=== PATIENT | female | born 1985 | race Caucasian/White ===

== ENCOUNTER 2016-12-06 21:51 | Emergency (ER) | payer OTHER ==
--- NOTE | 2016-12-06 22:04 | PDOC ---
History of Present Illness - General Chief Complaint: Pain, Acute Stated Complaint: ABD PAIN, N/V Time Seen by Provider: 12/06/16 22:00 - History of Present Illness Initial Comments: This 31-year-old woman with history of intermittent vomiting/diarrhea, who has consulted several gastroenterologists over the last year presents with a few hour history of nausea/vomiting/diarrhea. Patient states that earlier today she was "queasy" but able to tolerate liquids. At approximately 6 PM, she began to have vomiting and multiple episodes of watery diarrhea. No blood in vomitus and no blood/mucus in diarrhea noted. No history of fever/chills. The patient has intermittent cramping abdominal pain. She states that these symptoms are identical to previous episodes of acute vomiting/diarrhea. She states that she was scheduled to see a new mileage clerk in August of this year; her mother became ill and she was not able to keep that appointment. Patient denies recent travel or unusual food ingestion. No history of pancreatitis noted. Past History - Past Medical History Allergies/Adverse Reactions: Allergies Allergy/AdvReac Type Severity Reaction Status Date / Time levofloxacin Allergy Rash Verified 06/10/16 02:41 orange Allergy Verified 12/06/16 22:08 Penicillins Allergy Verified 06/10/16 02:41 Home Medications: Ambulatory Orders Famotidine 20 mg PO DAILY 07/11/15 Hyoscyamine Odt [Levsin Odt -] 0.125 mg PO DAILY #30 tab.rapdis 06/10/16 GI Disorders: Yes (Achlasia-ESOPHAGEAL NARROWING) - Surgical History Cholecystectomy: Yes - Psycho/Social/Smoking Cessation Hx Anxiety: No Suicidal Ideation: No Smoking History: Never smoked Have you smoked in the past 12 months: No Hx Alcohol Use: No Drug/Substance Use Hx: No Substance Use Type: None Abd/GI Specific PMHX - Complaint Specific PMHX Pancreatitis: No Review of Systems - Review of Systems Able to Perform ROS?: Yes Comments:: 12 point review of systems is negative except for what is noted in the history of present illness *Physical Exam - Physical Exam Comments: GENERAL: Adult female, in mild distress secondary to intermittent abdominal pain /nausea HEAD: Normal with no signs of trauma. EYES: PERRLA, EOMI, sclera anicteric, conjunctiva clear. ENT: Ears normal, nares patent, oropharynx clear without exudates. Dry mucous membranes. NECK: Normal range of motion, supple without lymphadenopathy, JVD, or masses. LUNGS: Breath sounds equal, clear to auscultation bilaterally. No wheezes, and no crackles. HEART:Regular rate and rhythm, normal S1 and S2 without murmur, rub or gallop. ABDOMEN:.normal bowel sounds No guarding,tenderness or rebound.No masses No distention. EXTREMITIES: Normal range of motion, no edema. No clubbing or cyanosis. No erythema, or tenderness. NEUROLOGICAL: Cranial nerves II through XII grossly intact. Normal speech. No focal neurological deficits. MUSCULOSKELETAL: Back non-tender to palpation, no CVA tenderness SKIN: Warm, Dry, normal turgor, no rashes or lesions noted. ED Treatment Course - LABORATORY CBC & Chemistry Diagram: 12/06/16 22:13 12/06/16 22:13 Progress Note - Progress Note Progress Note: This 31-year-old woman with intermittent vomiting/diarrhea, presents with usual episode of these symptoms for the last few hours. No recent travel or unusual food ingestions. Exam notable for dry mucous membranes; abdominal exam is unremarkable without tenderness or masses palpated. Patient given a liter of normal saline IV. Laboratory evaluation suggests hemoconcentration with elevated white blood cell count/hemoglobin/hematocrit. Also, specific gravity of her urine is 1.025. Electrolytes are normal. BUN is 15 with a creatinine of 0.9, suggestive of moderate prerenal azotemia. Patient had complained that the cramping pain was most troublesome to her. She was given Toradol 30 mg I the. She subsequently had relief of the cramping or abdominal pain. Additional liter of normal saline was given. Patient complained of "bloated "feeling and persistent nausea. Patient given Reglan 10 mg IV. Patient felt relief from her nausea/bloating and wishes to go home. Patient will be discharged with instructions to rehydrate with clear liquids as tolerated and advance diet cautiously. She has Reglan and Zofran at home secondary to her previous episodes of vomiting/diarrhea. She will follow up with her mileage clerk in the near future and return to the emergency room if she has acute vomiting or persistent diarrhea *DC/Admit/Observation/Transfer Diagnosis at time of Disposition: Nausea vomiting and diarrhea - Discharge Dispostion Disposition: HOME Condition at time of disposition: Stable - Referrals Referrals: STAFF,NOT ON [Primary Care Provider] - - Patient Instructions Printed Discharge Instructions: Diarrhea Additional Instructions: Rehydrate with clear fluids as tolerated Advance diet cautiously Continue medications as prescribed Follow-up with your mileage clerk within the next 5 days Return to ER if you have recurrent vomiting, severe/persistent pain or develop bloody diarrhea
[2016-12-06 22:12] VITALS: TEMP 98.1; BMI 37.8
[2016-12-06 22:35] LABS: MCH 26.1 pg (25.7-33.7); MCHC 33.2 g/dl (32.0-36.0); MEAN CELL VOLUME 78.6 fl (80-96); MEAN PLT VOLUME 11.3 fl (7.5-11.1); PLATELET COUNT 276 K/MM3 (134-434); WHITE BLOOD COUNT 16.5 K/mm3 (4.0-10.8)
[2016-12-06 22:37] LABS: PH,URINE 5.5 (4.5-8); URINE APPEARANCE Clear; URINE BILIRUBIN 1+ (NEGATIVE); URINE BLOOD Negative (NEGATIVE); URINE GLUCOSE (UA) Negative (NEGATIVE); URINE KETONE Trace (NEGATIVE); URINE LEUK ESTERASE Negative (NEGATIVE); URINE NITRITE Negative (NEGATIVE); URINE UROBILINOGEN 0.2 (0.2-1.0)
[2016-12-06 22:38] LABS: URINE COLOR YELLOW; URINE PROTEIN 1+ (NEGATIVE)
[2016-12-06 22:47] LABS: URINE BACTERIA MODERATE /hpf (NEGATIVE); URINE RBC 0-2 /hpf (0-3)
[2016-12-06 23:05] LABS: ALBUMIN 4.9 g/dl (3.5-5.0); ALK PHOS 75 U/L (32-92); ANION GAP 9 (8-16); BILIRUBIN,TOTAL 0.9 mg/dl (0.2-1.0); CALCIUM 9.4 mg/dl (8.4-10.2); CO2 26 mmol/L (22-28); CREATININE 0.9 mg/dl (0.6-1.3); GLUCOSE,RANDOM 128 mg/dl (74-106); SGOT/AST 35 U/L (10-42); SGPT/ALT 63 U/L (10-40); TOT PROT 8.5 g/dl (6.4-8.3)
[2016-12-06 23:23] LABS: PLATELET ESTIMATE ADEQUATE (NORMAL)
[2016-12-06] MEDS ORDERED: SODIUM CHLORIDE 1,000 ML IV STA (23:33)
[2016-12-06] MEDS ORDERED: KETOROLAC TROMETHAMINE 30 MG/1 ML VIAL IVPUSH ONE (23:33)
[2016-12-06] MEDS ORDERED: KETOROLAC TROMETHAMINE 30 MG/1 ML VIAL ONE (23:37)
[2016-12-07] MEDS ORDERED: METOCLOPRAMIDE HCL INJECTION 10 MG/2 ML VIAL IVPB ONE (00:34)
[2016-12-07 01:14] VITALS: BP 117/52; PULSE 88
== END 2016-12-07 01:16 | disposition home or self-care (01) ==
LOC: FER 21:51
PROC: 3E0333Z Introduction of Anti-inflammatory into Peripheral Vein, Percutaneous Approach (ICD-10-PCS; principal; 2016-12-06)
PROC: 3E033GC Introduction of Other Therapeutic Substance into Peripheral Vein, Percutaneous Approach (ICD-10-PCS; 2016-12-06)
PROC: 3E0337Z Introduction of Electrolytic and Water Balance Substance into Peripheral Vein, Percutaneous Approach (ICD-10-PCS; 2016-12-06)
DX: R11.2 Nausea with vomiting, unspecified (principal); R19.7 Diarrhea, unspecified
CPT/HCPCS: 36415; 80053; 81003; 81015; 83690; 84703; 85025; 87086; 99283-25

== ENCOUNTER 2018-02-26 09:29 | Emergency (ER) | payer OTHER ==
--- NOTE | 2018-02-26 09:32 | PDOC ---
History of Present Illness - General Chief Complaint: Nausea/Vomiting Stated Complaint: NVD Time Seen by Provider: 02/26/18 09:31 History Source: Patient Exam Limitations: No Limitations - History of Present Illness Initial Comments: 02/26/18 10:01 32 yo F with a hx of achalasia (last esophageal dilation 2004), PCOS, and gastritis presents to the emergency department with nausea and vomiting (1x episode non-billious, non-bloody) with associative RUQ pain. She states it occurred at approximately 5:30 am and had the following associative symptoms: diarrhea (multiple episodes), lightheadedness, and headache. She states the pain is currently at a "discomfort" level and had not had another vomiting episode since the initial. Denies the following: recent sick contacts, fever, chills, ear pain, throat pain, rhinorrhea, visual changes, dysuria, hematuria, increased frequency, melena, and hematochezia. Pmhx: Refer to above Shx: cholecystectomy 2006 Meds: None currently. Admits to be prescribed pepcid and hyocyamine Allergies: Levofloxacin and penicillins Social: Denies tobacco, alcohol, and substance abuse. PMD: None currently. Past History - Past Medical History Allergies/Adverse Reactions: Allergies Allergy/AdvReac Type Severity Reaction Status Date / Time levofloxacin Allergy Rash Verified 02/26/18 09:33 orange Allergy Verified 02/26/18 09:33 Penicillins Allergy Verified 02/26/18 09:33 Home Medications: Ambulatory Orders Famotidine 20 mg PO DAILY 07/11/15 Hyoscyamine Odt [Levsin Odt -] 0.125 mg PO DAILY #30 tab.rapdis 06/10/16 Ondansetron [Zofran -] 4 mg PO TID PRN #21 tablet 02/26/18 GI Disorders: Yes (Achlasia-ESOPHAGEAL NARROWING) - Surgical History Cholecystectomy: Yes GI Surgery: Yes (DILATION OF ESOPHAGUS) - Suicide/Smoking/Psychosocial Hx Smoking History: Never smoked Have you smoked in the past 12 months: No Hx Alcohol Use: No Drug/Substance Use Hx: No Substance Use Type: None Review of Systems - Review of Systems Able to Perform ROS?: Yes Is the patient limited Faroese proficient: No Constitutional: Yes: Weakness. No: Chills, Diaphoresis, Fever HEENTM: No: Recent change in vision, Ear Pain, Nose Pain, Nose Congestion, Throat Pain, Throat Swelling Respiratory: No: Cough, Shortness of Breath, Hemoptysis Cardiac (ROS): No: Chest Pain, Irregular Heart Rate, Lightheadedness, Palpitations, Syncope ABD/GI: Yes: Diarrhea, Nausea, Poor Fluid Intake, Vomiting. No: Blood Streaked Bowels, Constipated, Rectal Bleeding, Tarry Stools : Yes: Flank Pain (right). No: Burning, Dysuria, Frequency, Hematuria, Urgency Musculoskeletal: No: Back Pain Integumentary: No: Bruising, Lesions, Rash Neurological: Yes: Headache, Weakness. No: Numbness, Tingling, Unsteady Gait, Ataxia, Dizziness Psychiatric: No: Stressors Endocrine: No: Unexplained Weight Gain Hematologic/Lymphatic: No: Anemia *Physical Exam - Physical Exam General Appearance: Yes: Nourished, Appropriately Dressed. No: Apparent Distress HEENT: positive: EOMI, LORE, Normal Voice, Symmetrical. negative: Scleral Icterus (R), Scleral Icterus (L), Muffled/Hoarse voice, Nasal Congestion, Rhinorrhea, Excessive drooling Neck: positive: Trachea midline. negative: Tender, Lymphadenopathy (R), Lymphadenopathy (L), Tender lateral, Tender midline Respiratory/Chest: positive: Lungs Clear, Normal Breath Sounds. negative: Chest Tender, Respiratory Distress, Accessory Muscle Use, Crackles, Rales, Rhonchi, Stridor, Wheezing, Hyperresonant Cardiovascular: positive: Regular Rhythm, S1, S2, Tachycardia. negative: Systolic Murmur Gastrointestinal/Abdominal: positive: Normal Bowel Sounds, Tender (suprapubic, epigastric, and RUQ region), Flat, Soft. negative: Protuberent, Distended, Guarding, Rebound, Hernia Lymphatic: negative: Adenopathy Musculoskeletal: positive: Normal Inspection, CVA Tenderness (R). negative: CVA Tenderness (L) Extremity: positive: Normal Capillary Refill, Normal Inspection, Normal Range of Motion, Tender Integumentary: positive: Normal Color, Dry, Warm Neurologic: positive: regulatory administrator II-XII NML intact, Fully Oriented, Alert, Normal Mood/ Affect, Normal Response, Motor Strength 5/5. negative: Confused ED Treatment Course - LABORATORY CBC & Chemistry Diagram: 02/26/18 10:12 02/26/18 10:12 Medical Decision Making - Medical Decision Making 02/26/18 10:31 32 yo F with a hx of achalasia (last esophageal dilation 2004), PCOS, and gastritis presents to the emergency department with nausea and vomiting (1x episode non-billious, non-bloody) with associative RUQ pain Initial vitals: Initial Vital Signs Temp Pulse Resp BP Pulse Ox 98.2 F 106 H 20 116/86 99 02/26/18 09:29 02/26/18 09:29 02/26/18 09:29 02/26/18 09:29 02/26/18 09:29 Work up: ddx: patient presents with n/v with associative RUQ pain with positive CVA and suprapubic tenderness. patient has efraín 10+ years ago, unlikely to be choledocholithiasis. r/o pancreatitis, UTI, (Ectopic). Unlikely to be SBO given she has been having diarrhea. Likely this is viral gastroenteritis vs IBS exacerbation (hx of gastritis). will order cbc to rule out infection, cmp to assess metabolic status, UA for infection rate, urine to determine status. will treat with IVF, zofran and pepcid initially. Laboratory Tests 02/26/18 02/26/18 02/26/18 09:58 10:12 10:12 WBC 19.5 H RBC 5.72 H Hgb 13.6 Hct 42.2 MCV 73.7 L MCH 23.8 L MCHC 32.4 RDW 15.1 Plt Count 347 MPV 11.6 H Absolute Neuts (auto) 17.1 Neutrophils % No Result Required. Neutrophils % (Manual) 87.0 H Lymphocytes % No Result Required. Lymphocytes % (Manual) 9.0 Monocytes % (Manual) 6 Platelet Estimate Adequate Sodium 136 Potassium 4.4 Chloride 104 Carbon Dioxide 25 Anion Gap 7 L BUN 14 Creatinine 0.7 Creat Clearance w eGFR > 60 Random Glucose 117 H Calcium 9.6 Total Bilirubin 0.4 AST 28 ALT 44 H D Alkaline Phosphatase 73 Total Protein 8.1 Albumin 4.4 Lipase 137 Urine Color Urine Appearance Urine pH Ur Specific Phyllis Urine Protein Urine Glucose (UA) Urine Ketones Urine Blood Urine Nitrite Urine Bilirubin Urine Urobilinogen Ur Leukocyte Esterase Urine HCG, Qual 02/26/18 02/26/18 11:32 11:32 WBC RBC Hgb Hct MCV MCH MCHC RDW Plt Count MPV Absolute Neuts (auto) Neutrophils % Neutrophils % (Manual) Lymphocytes % Lymphocytes % (Manual) Monocytes % (Manual) Platelet Estimate Sodium Potassium Chloride Carbon Dioxide Anion Gap BUN Creatinine Creat Clearance w eGFR Random Glucose Calcium Total Bilirubin AST ALT Alkaline Phosphatase Total Protein Albumin Lipase Urine Color Bisi Urine Appearance Clear Urine pH 6.0 Ur Specific Phyllis 1.020 Urine Protein Negative Urine Glucose (UA) Negative Urine Ketones Negative Urine Blood Negative Urine Nitrite Negative Urine Bilirubin Negative Urine Urobilinogen 0.2 Ur Leukocyte Esterase Negative Urine HCG, Qual Negative cbc shows wbc of 19.5 and elevated alt at 44. patient was reassessed after fluids (given 2 L of NS 0.9% total) and zofran + pepcid. She states her nausea ceased and she has pain improvement (initial was 5/10 in dept, now 2/10) but has persistent pain that increases with movement. will order CT abd/pelv with IV contrast due to increased pain in setting of WBC elevation. 02/26/18 11:57 *DC/Admit/Observation/Transfer Diagnosis at time of Disposition: Nausea & vomiting Qualifiers: Vomiting type: unspecified Vomiting Intractability: intractable Qualified Code( s): R11.2 - Nausea with vomiting, unspecified Abdominal pain Qualifiers: Abdominal location: right upper quadrant Qualified Code(s): R10.11 - Right upper quadrant pain - Discharge Dispostion Disposition: HOME Decision to Admit order: No - Prescriptions Prescriptions: Ondansetron [Zofran -] 4 mg PO TID PRN #21 tablet PRN Reason: Nausea - Referrals Referrals: [facility] [Provider Group] - Patient Instructions Printed Discharge Instructions: DI for Nausea -- Adult, DI for Vomiting -- Adult Additional Instructions: You were seen in the emergency department for your nausea and vomiting with associative abdominal pain. The lab results were within normal limits except for your white blood cell count which was 19.5 which is considered elevated. This can be due to a viral infection. Your CT abdomen and pelvis showed no acute pathologies. Please continue to stay on a liquid diet for today and transition to solids starting tomorrow slowly and as tolerated. Please continue to use ibuprofen and tylenol as needed for pain as directed on the label. Please follow up with your primary medical doctor (or the one we referred you to in the packet) within 72 hours after discharge for follow up care and management. Please return to the emergency department if you have worsening of symptoms or develop new concerning symptoms such as fever/chills, continuous vomiting, blood in the stool, vomit, or urine, and worsening abdominal pain. Thank you. - Post Discharge Activity
[2018-02-26 09:43] VITALS: BMI 36.8
[2018-02-26] MEDS ORDERED: FAMOTIDINE 20 MG/50 ML IVPB 20 MG/50 ML MG IVPB ONE ×2 (09:48→10:10)
[2018-02-26] MEDS ORDERED: HYOSCYAMINE SULFATE 0.125 MG TABLET PO ONE (09:48)
[2018-02-26] MEDS ORDERED: MAG HYDROX/AL HYDROX/SIMETH 30 ML UNIT-DOSE CUP PO ONE (09:48)
[2018-02-26] MEDS ORDERED: SODIUM CHLORIDE 1,000 ML IV STA ×2 (09:48→10:53)
[2018-02-26] MEDS ORDERED: ONDANSETRON 4 MG/2 ML VIAL IVPUSH ONE (09:50)
--- NOTE | 2018-02-26 09:51 | PDOC ---
Attending Attestation - Resident Resident Name: BrandieUgo - ED Attending Attestation I have performed the following: I have examined & evaluated the patient, The case was reviewed & discussed with the resident, I agree w/resident's findings & plan, Exceptions are as noted - HPI HPI: 02/26/18 09:51 32, hx of gastritis, acalasia, s/p dilitaion, s/p cholecystectomy presents to the emergency department with one-day history of nausea vomiting diarrhea and epigastric abdominal discomfort. One episode of emesis nonbloody nonbilious persistent nausea retching and several episodes of loose watery diarrhea. No travel no sick contacts. Similar symptoms in the past last episode was 3 months ago Currently symptoms are persistent concent moderate to severe in severity with no exacerbating or alleviating factors. - Physicial Exam PE: Vitals: Triage Vital signs reviewed General Appearance: no acute distress, well nourished well developed, Head: Atraumatic, Neck: Supple;No Nucal rigidity Chest Wall: Nontender Cardiac: Regular rate and rhythym, no murmurs, no rubs, no gallops, Lungs: Clear to auscultation bilateral, good air movement bilaterally, Abdomen: Soft, non distended, normal bowel sounds, Epigastric ttp Extremities: Full range of motion to all extremities, no cyanosis, clubbing, or edema Skin: Warm and dry, no rashes or lesions, no rash, no petechiae Psych: normal mood, normal affect - Medical Decision Making 02/26/18 14:36 32 years old nausea vomiting diarrhea we'll treat with GI cocktail observe serial abdominal exams and reassess Patient feels less nauseous after GI cocktail still with some abdominal pain. Laboratory analysis notable for white count of 19 Given persistent pain and elevated white blood cell count we'll obtain CT abdomen pelvis to rule out surgical pathology Reevaluation: CT abdomen pelvis with no acute findings at this time patient's pain is improving history examination consistent with viral GI illness given nausea vomiting and diarrhea We'll discharge home with course of Zofran and close PCP follow-up Findings, the need for follow-up and very strict abdominal pain return instructions discussed with patient.
[2018-02-26] MEDS ORDERED: ONDANSETRON 4 MG/2 ML VIAL ONE (10:10)
[2018-02-26 10:49] LABS: HEMATOCRIT 42.2 % (32.4-45.2); HEMOGLOBIN 13.6 GM/dl (10.7-15.3); MCH 23.8 pg (25.7-33.7); MCHC 32.4 g/dl (32.0-36.0); MEAN CELL VOLUME 73.7 fl (80-96); MEAN PLT VOLUME 11.6 fl (7.5-11.1); PLATELET COUNT 347 K/MM3 (134-434); RBC 5.72 M/mm3 (3.60-5.2); RDW 15.1 % (11.6-15.6); WHITE BLOOD COUNT 19.5 K/mm3 (4.0-10.8)
[2018-02-26 10:56] LABS: ALBUMIN 4.4 g/dl (3.5-5.0); ALK PHOS 73 U/L (32-92); ANION GAP 7 MMOL/L (8-16); BILIRUBIN,TOTAL 0.4 mg/dl (0.2-1.0); BLOOD UREA NITROGEN 14 mg/dl (7-18); CALCIUM 9.6 mg/dl (8.4-10.2); CHLORIDE 104 mmol/L (98-107); CO2 25 mmol/L (22-28); CREATININE 0.7 mg/dl (0.6-1.3); GLUCOSE,RANDOM 117 mg/dl (74-106); POTASSIUM 4.4 mmol/L (3.5-5.1); SGOT/AST 28 U/L (10-42); SGPT/ALT 44 U/L (10-40); SODIUM 136 mmol/L (136-145); TOT PROT 8.1 g/dl (6.4-8.3)
[2018-02-26 11:21] LABS: PLATELET ESTIMATE ADEQUATE
[2018-02-26 11:40] LABS: URINE APPEARANCE Clear; URINE BILIRUBIN Negative (NEGATIVE); URINE COLOR Amber; URINE GLUCOSE (UA) Negative (NEGATIVE); URINE KETONE Negative (NEGATIVE); URINE LEUK ESTERASE Negative (NEGATIVE); URINE NITRITE Negative (NEGATIVE); URINE PROTEIN Negative (NEGATIVE); URINE UROBILINOGEN 0.2 (0.2-1.0)
[2018-02-26 13:22] VITALS: BP 114/69; PULSE 81; TEMP 98.3
== END 2018-02-26 14:40 | disposition home or self-care (01) ==
LOC: FER 09:29
PROC: 3E033GC Introduction of Other Therapeutic Substance into Peripheral Vein, Percutaneous Approach (ICD-10-PCS; principal; 2018-02-26)
PROC: 3E0337Z Introduction of Electrolytic and Water Balance Substance into Peripheral Vein, Percutaneous Approach (ICD-10-PCS; 2018-02-26)
DX: R11.2 Nausea with vomiting, unspecified (principal); R10.11 Right upper quadrant pain
CPT/HCPCS: 36415; 74177-TC; 80053; 81003; 83690; 84703; 85025; 87086; 99283-25; J7030

== ENCOUNTER 2018-08-19 06:17 | Emergency (ER) | payer OTHER ==
[2018-08-19 06:26] VITALS: BMI 36.8
--- NOTE | 2018-08-19 06:27 | PDOC ---
History of Present Illness - General Chief Complaint: Nausea/Vomiting Stated Complaint: VOMITING SINCE 4AM Time Seen by Provider: 08/19/18 06:27 History Source: Patient Exam Limitations: No Limitations Past History - Past Medical History Allergies/Adverse Reactions: Allergies Allergy/AdvReac Type Severity Reaction Status Date / Time levofloxacin Allergy Rash Verified 08/19/18 06:18 orange Allergy Verified 08/19/18 06:18 Penicillins Allergy Verified 08/19/18 06:18 Home Medications: Ambulatory Orders Famotidine 20 mg PO DAILY 07/11/15 COPD: No GI Disorders: Yes (Achlasia-ESOPHAGEAL NARROWING) - Surgical History Cholecystectomy: Yes GI Surgery: Yes (DILATION OF ESOPHAGUS) - Suicide/Smoking/Psychosocial Hx Smoking History: Never smoked Have you smoked in the past 12 months: No Information on smoking cessation initiated: No Hx Alcohol Use: No Drug/Substance Use Hx: No Substance Use Type: None Abd/GI Specific PMHX - Complaint Specific PMHX Pancreatitis: No *Physical Exam - Vital Signs Last Vital Signs Temp Pulse Resp BP Pulse Ox 97.5 F L 104 H 16 124/87 100 08/19/18 06:20 08/19/18 06:20 08/19/18 06:20 08/19/18 06:20 08/19/18 06:20 *DC/Admit/Observation/Transfer - Discharge Dispostion Condition at time of disposition: Stable - Referrals - Patient Instructions - Post Discharge Activity
[2018-08-19] MEDS ORDERED: SODIUM CHLORIDE 1,000 ML IV ONE (06:43)
[2018-08-19] MEDS ORDERED: ONDANSETRON 4 MG/2 ML VIAL IVPB ONE (06:44)
[2018-08-19] MEDS ORDERED: ONDANSETRON 4 MG/2 ML VIAL ONE (06:46)
--- NOTE | 2018-08-19 07:48 | PDOC ---
*Physical Exam - Vital Signs Last Vital Signs Temp Pulse Resp BP Pulse Ox 97.5 F L 104 H 16 124/87 100 08/19/18 06:20 08/19/18 06:20 08/19/18 06:20 08/19/18 06:20 08/19/18 06:20 ED Treatment Course - LABORATORY CBC & Chemistry Diagram: 08/19/18 07:01 08/19/18 07:01 - Medications Given in the ED: ED Medications Discontinued Medications Generic Name Dose Route Start Last Admin Trade Name Freq PRN Reason Stop Dose Admin Ondansetron HCl 8 mg 08/19/18 06:44 08/19/18 06:54 Zofran Injection IVPB 08/19/18 06:45 8 mg ONCE ONE Administration *DC/Admit/Observation/Transfer Diagnosis at time of Disposition: Nausea vomiting and diarrhea - Discharge Dispostion Disposition: HOME Condition at time of disposition: Improved Decision to Admit order: No - Prescriptions Prescriptions: Ondansetron [Zofran Odt -] 4 mg SL TID PRN #20 od.tablet PRN Reason: Nausea And/Or Vomiting - Referrals Referrals: J Carlos Madera MD [Staff Physician] - - Patient Instructions Printed Discharge Instructions: DI for Nausea -- Adult, DI for Vomiting -- Adult Additional Instructions: Blood tests showed that a certain chemical produced by the pancreas was elevated. However, CT scan revealed no pancreas abnormality. However, it is necessary to see a bakeshop cleaner to further investigate the reason for an elevated pancreatic enzyme, which is called lipase. There may be early inflammation of the pancreas that is as yet undetectable on CT scan. Your white blood count is elevated, suggesting that you have a stomach virus that is responsible for your symptoms. This should resolve on its own in a day or 2. Stay on clear liquids advancing as tolerated when pain and nausea/vomiting /diarrhea resolve Take Zofran as prescribed for nausea, Imodium [id number] for diarrhea if there are frequent stools or large amounts of liquid stool that persists. See her family doctor and follow up with bakeshop cleaner as directed. Return to ER if symptoms worsen or additional symptoms develop - Post Discharge Activity
[2018-08-19 07:54] LABS: BASO % 0.2 % (0-2.0); EOS % 0.7 % (0-4.5); HEMATOCRIT 43.4 % (32.4-45.2); HEMOGLOBIN 13.7 GM/dl (10.7-15.3); LYMPH % 6.6 % (8-40); MCH 23.5 pg (25.7-33.7); MCHC 31.6 g/dl (32.0-36.0); MEAN CELL VOLUME 74.2 fl (80-96); MEAN PLT VOLUME 11.1 fl (7.5-11.1); MONO % 5.6 % (3.8-10.2); NEUT % 86.9 % (42.8-82.8); PLATELET COUNT 365 K/MM3 (134-434); RBC 5.85 M/mm3 (3.60-5.2); RDW 14.8 % (11.6-15.6); WHITE BLOOD COUNT 19.5 K/mm3 (4.0-10.8)
[2018-08-19 08:02] LABS: ALBUMIN 4.8 g/dl (3.4-5.0); BILIRUBIN,TOTAL 0.3 mg/dl (0.2-1); CALCIUM 9.8 mg/dl (8.5-10); CREATININE 0.9 mg/dl (0.55-1.3); POTASSIUM 3.9 mmol/L (3.5-5.1); TOT PROT 8.5 g/dl (6.4-8.2)
[2018-08-19 10:27] VITALS: BP 106/71; PULSE 83; TEMP 98.5
[2018-08-19 14:02] LABS: ADD RBC MORPHOLOGY YES
[2018-08-19 14:08] LABS: ANISOCYTOSIS 1+; OVALOCYTE 1+; TEAR DROP CELLS FEW
--- NOTE | 2018-08-19 14:26 | PDOC ---
History of Present Illness - General Chief Complaint: Nausea/Vomiting Stated Complaint: VOMITING SINCE 4AM Time Seen by Provider: 08/19/18 06:27 - History of Present Illness Initial Comments: 08/19/18 14:21 Chief complaint: Nausea vomiting and diarrhea History of present illness: Nausea vomiting and diarrhea suggested evening. No hematemesis melena or bloody stool. Mild intermittent crampy epigastric pain. Similar symptoms frequently in the past, last several months ago, persist for 1- 2 days and resolved spontaneously. Uses Zofran 4 symptomatic treatment no other GI disease is diagnosed. Review of systems: As noted above. Remainder of review negative Social/family history: No tobacco alcohol or nonprescription drugs. No disability. No family history of GI disease Physical exam: Alert and oriented well-developed well-nourished no acute distress cheerful and cooperative Afebrile, vital signs normal No pallor or icterus. HEENT clear. Neck supple without bruit mass or nodes Chest clear CV regular without murmur rub or gallop Abdomen nondistended. Bowel sounds normal. Soft without mass or organomegaly. There is mild tenderness to deep palpation in the epigastrium without guarding or rebound. No CVAT Extremities no CCE Skin clear, no rash, adequate turgor and wet mucous membranes Neurological intact Impression: Gastrointestinal illness, possible viral gastroenteritis Plan: CBC chemistries and lipase. Symptomatic treatment with fluids and Zofran. Observation and further evaluation depending on results Past History - Past Medical History Allergies/Adverse Reactions: Allergies Allergy/AdvReac Type Severity Reaction Status Date / Time levofloxacin Allergy Rash Verified 08/19/18 06:18 orange Allergy Verified 08/19/18 06:18 Penicillins Allergy Verified 08/19/18 06:18 Home Medications: Ambulatory Orders Famotidine 20 mg PO DAILY 07/11/15 Ondansetron [Zofran Odt -] 4 mg SL TID PRN #20 od.tablet 08/19/18 COPD: No GI Disorders: Yes (Achlasia-ESOPHAGEAL NARROWING) - Surgical History Cholecystectomy: Yes GI Surgery: Yes (DILATION OF ESOPHAGUS) - Suicide/Smoking/Psychosocial Hx Smoking History: Never smoked Have you smoked in the past 12 months: No Information on smoking cessation initiated: Yes Hx Alcohol Use: No Drug/Substance Use Hx: No Substance Use Type: None Abd/GI Specific PMHX - Complaint Specific PMHX Pancreatitis: No *Physical Exam - Vital Signs Last Vital Signs Temp Pulse Resp BP Pulse Ox 98.5 F 83 16 106/71 99 08/19/18 10:24 08/19/18 10:24 08/19/18 10:24 08/19/18 10:24 08/19/18 10:24 ED Treatment Course - LABORATORY CBC & Chemistry Diagram: 08/19/18 07:01 08/19/18 07:01 - ADDITIONAL ORDERS Additional order review: Laboratory Results 08/19/18 08/19/18 10:24 07:01 Sodium 136 Potassium 3.9 Chloride 100 Carbon Dioxide 23 Anion Gap 13 BUN 12 Creatinine 0.9 Est GFR (CKD-EPI)AfAm 97.37 Est GFR (CKD-EPI)NonAf 84.01 Random Glucose 145 H Calcium 9.8 Total Bilirubin 0.3 AST 33 ALT 48 Alkaline Phosphatase 83 Total Protein 8.5 H Albumin 4.8 Lipase 558 H Urine HCG, Qual Negative 08/19/18 07:01 RBC 5.85 H MCV 74.2 L MCHC 31.6 L RDW 14.8 MPV 11.1 Neutrophils % 86.9 H Lymphocytes % 6.6 L Monocytes % 5.6 Eosinophils % 0.7 Basophils % 0.2 - RADIOLOGY Radiology Studies Ordered: Category Date Time Status ABDOMEN CT WITH CONTRAST* [CT] Stat CT Scan 08/19/18 11:23 Completed - Medications Given in the ED: ED Medications Discontinued Medications Generic Name Dose Route Start Last Admin Trade Name Freq PRN Reason Stop Dose Admin Sodium Chloride 1,000 mls @ 1,000 mls/hr 08/19/18 06:43 08/19/18 06:53 Normal Saline - IV 08/19/18 07:42 1,000 mls/hr .Q1H ONE Administration Ondansetron HCl 8 mg 08/19/18 06:44 08/19/18 06:54 Zofran Injection IVPB 08/19/18 06:45 8 mg ONCE ONE Administration Medical Decision Making - Medical Decision Making 08/19/18 14:26 WBC 19,000, lipase 558. WBCs were elevated to this level on last admission, however, lipase has been normal Possibly viral gastroenteritis, but rule out hepatic or pancreatic disease CT of the abdomen with contrast is negative. Elevated amylase and normal CT were discussed with the patient. The possibility of pancreatic disease is still possible and she was strongly encouraged to follow up with dewer for further evaluation and treatment. In the meantime treatment for gastroenteritis with antiemetics, Imodium, and fluids, with return to ER if symptoms worsen or other symptoms develop. Patient feels much better, no further nausea or vomiting after treatment, no distress at discharge with to follow-up as directed. *DC/Admit/Observation/Transfer Diagnosis at time of Disposition: Nausea vomiting and diarrhea - Discharge Dispostion Disposition: HOME Condition at time of disposition: Improved - Prescriptions Prescriptions: Ondansetron [Zofran Odt -] 4 mg SL TID PRN #20 od.tablet PRN Reason: Nausea And/Or Vomiting - Referrals Referrals: J Carlos Madera MD [Staff Physician] - - Patient Instructions Printed Discharge Instructions: DI for Nausea -- Adult, DI for Vomiting -- Adult Additional Instructions: Blood tests showed that a certain chemical produced by the pancreas was elevated. However, CT scan revealed no pancreas abnormality. However, it is necessary to see a dewer to further investigate the reason for an elevated pancreatic enzyme, which is called lipase. There may be early inflammation of the pancreas that is as yet undetectable on CT scan. Your white blood count is elevated, suggesting that you have a stomach virus that is responsible for your symptoms. This should resolve on its own in a day or 2. Stay on clear liquids advancing as tolerated when pain and nausea/vomiting /diarrhea resolve Take Zofran as prescribed for nausea, Imodium [id number] for diarrhea if there are frequent stools or large amounts of liquid stool that persists. See her family doctor and follow up with dewer as directed. Return to ER if symptoms worsen or additional symptoms develop - Post Discharge Activity Forms/Work/School Notes: Back to Work
== END 2018-08-19 13:29 | disposition home or self-care (01) ==
LOC: FER 06:17
PROC: 3E033GC Introduction of Other Therapeutic Substance into Peripheral Vein, Percutaneous Approach (ICD-10-PCS; principal; 2018-08-19)
PROC: 3E0337Z Introduction of Electrolytic and Water Balance Substance into Peripheral Vein, Percutaneous Approach (ICD-10-PCS; 2018-08-19)
DX: R11.2 Nausea with vomiting, unspecified (principal); R19.7 Diarrhea, unspecified
CPT/HCPCS: 36415; 74160-TC; 80053; 83690; 84703; 85025; 99282-25; J7030

== ENCOUNTER 2024-08-17 14:03 | Emergency (ER) | payer BC ==
[2024-08-17] MEDS ORDERED: ONDANSETRON 4 MG/2 ML VIAL IVPB ONE (14:07)
[2024-08-17] MEDS ORDERED: SODIUM CHLORIDE 0.9% 500 ML INFUS.BAG IV ONE (14:07)
[2024-08-17 14:33] VITALS: BP 133/82; PULSE 82; RESP 20; TEMP 98.4; BMI 37.8
[2024-08-17] MEDS ORDERED: ACETAMINOPHEN INJECTION 100 ML ONE (14:49)
[2024-08-17] MEDS: ACETAMINOPHEN 1000 MG/100 ML BAG IVPB ONE (15:00)
[2024-08-17] MEDS: DEXTROSE 5%-NORMAL SALINE 1,000 ML IV ONE (15:00)
[2024-08-17 15:34] LABS: ABSOLUTE IMMATURE GRANULOCYTES 0.03 x10^3/uL (0.0-0.031); BASOPHILS # 0.03 x10^3/uL (0.01-0.08); EOSINOPHIL % 1.4 % (0.7-5.8); EOSINOPHILS # 0.14 x10^3/uL (0.04-0.36); HEMATOCRIT 41.4 % (34.1-44.9); HEMOGLOBIN 13.6 g/dL (11.2-15.7); MCHC 32.9 g/dl (32.2-35.5); MEAN PLT VOLUME 11.5 fl (9.4-12.3); MONOCYTE # 0.63 x10^3/uL (0.24-0.86); MONOCYTE % 6.5 % (4.7-12.5); PLATELET COUNT 200 x10^3/uL (182-369); RDW 13.7 % (12.1-16.8)
[2024-08-17 15:47] LABS: ALBUMIN 4.2 g/dl (3.4-5.0); ALK PHOS 67 U/L (45-117); ANION GAP 8 mmol/L (4-13); BILIRUBIN,TOTAL 0.4 mg/dl (0.2-1); CALCIUM 9.3 mg/dl (8.5-10.1); CHLORIDE 103 mmol/L (98-107); CO2 25 mmol/L (21-32); CREATININE 0.6 mg/dl (0.6-1.3); GLUCOSE,RANDOM 96 mg/dl (74-106); POTASSIUM 3.9 mmol/L (3.5-5.1); SGOT/AST 14 U/L (15-37); SGPT/ALT 24 U/L (7-52); SODIUM 136 mmol/L (136-145); TOT PROT 7.1 g/dl (6.4-8.2)
[2024-08-17 18:32] LABS: HIV INTERPRETATION NEGATIVE (NEGATIVE)
[2024-08-17 18:33] LABS: HCV DIAGNOSTIC IN-HOUSE W/RFLX NON-REACTIVE (NONREACTIVE)
== END 2024-08-17 18:20 | disposition home or self-care (01) ==
LOC: FER 14:03
PROC: 3E033NZ Introduction of Analgesics, Hypnotics, Sedatives into Peripheral Vein, Percutaneous Approach (ICD-10-PCS; principal; 2024-08-17)
PROC: 3E033GC Introduction of Other Therapeutic Substance into Peripheral Vein, Percutaneous Approach (ICD-10-PCS; 2024-08-17)
PROC: 3E0337Z Introduction of Electrolytic and Water Balance Substance into Peripheral Vein, Percutaneous Approach (ICD-10-PCS; 2024-08-17)
DX: O09.521 Supervision of elderly multigravida, first trimester (principal); O21.9 Vomiting of pregnancy, unspecified; O26.891 Other specified pregnancy related conditions, first trimester; R10.13 Epigastric pain; R63.8 Other symptoms and signs concerning food and fluid intake; O99.891 Other specified diseases and conditions complicating pregnancy; R19.7 Diarrhea, unspecified; Z3A.08 8 weeks gestation of pregnancy
CPT/HCPCS: 0241U-QW; 36415; 80053; 81003; 83690; 83735; 84702; 84703; 85025; 86803; 87389; 99284-25; J0131

== ENCOUNTER 2024-11-12 12:16 | Emergency (ER) | payer BC ==
[2024-11-12 12:32] VITALS: BP 125/81; PULSE 85; RESP 18; TEMP 98.1; BMI 38.6
[2024-11-12] MEDS: SODIUM CHLORIDE 1,000 ML IV STA (12:42)
[2024-11-12 12:51] LABS: ABSOLUTE IMMATURE GRANULOCYTES 0.06 x10^3/uL (0.0-0.031); BASOPHILS # 0.03 x10^3/uL (0.01-0.08); EOSINOPHIL % 1.1 % (0.7-5.8); EOSINOPHILS # 0.11 x10^3/uL (0.04-0.36); MCHC 33.5 g/dl (32.2-35.5); MEAN CELL VOLUME 82.1 fl (79.4-94.8); MEAN PLT VOLUME 11.6 fl (9.4-12.3); MONOCYTE # 0.54 x10^3/uL (0.24-0.86); MONOCYTE % 5.6 % (4.7-12.5); RDW 14.9 % (12.1-16.8)
[2024-11-12 13:02] LABS: ALK PHOS 57.0 U/L (45-117); CO2 23.0 mmol/L (21-32); CREATININE 0.5 mg/dl (0.6-1.3); GLUCOSE,RANDOM 96.0 mg/dl (74-106); SGOT/AST 8.0 U/L (15-37); SGPT/ALT 10.0 U/L (7-52); TOT PROT 6.6 g/dl (6.4-8.2)
[2024-11-12 14:22] LABS: HCV DIAGNOSTIC IN-HOUSE W/RFLX NON-REACTIVE (NONREACTIVE); HIV INTERPRETATION NEGATIVE (NEGATIVE)
== END 2024-11-12 13:57 | disposition home or self-care (01) ==
LOC: FER 12:16
PROC: 3E0337Z Introduction of Electrolytic and Water Balance Substance into Peripheral Vein, Percutaneous Approach (ICD-10-PCS; principal; 2024-11-12)
DX: O09.522 Supervision of elderly multigravida, second trimester (principal); O26.892 Other specified pregnancy related conditions, second trimester; R10.13 Epigastric pain; O21.2 Late vomiting of pregnancy; Z3A.00 Weeks of gestation of pregnancy not specified
CPT/HCPCS: 36415; 80053; 81003; 85025; 86803; 87389; 99283-25